=== PATIENT | male | born 1950 | race Caucasian/White ===

== ENCOUNTER → 2019-12-18 13:37 | Outpatient (BNVA) | payer OTHER, MEDICARE, SELFPAY | PROVIDERS: PCP Internal Medicine; Visit Provider Nurse Practitioner Family | DX: Z11.59 Encounter for screening for other viral diseases (principal) | CPT/HCPCS: 87635 ==

== ENCOUNTER → 2020-05-26 09:18 | Outpatient (BNVA) | payer OTHER, SELFPAY | PROVIDERS: PCP Internal Medicine; Visit Provider Internal Medicine Cardiovascular Disease | DX: I10 Essential (primary) hypertension (principal); I49.9 Cardiac arrhythmia, unspecified; E78.1 Pure hyperglyceridemia; I49.3 Ventricular premature depolarization; R91.1 Solitary pulmonary nodule | CPT/HCPCS: 80053; 80061; 84443; 85025 ==

== ENCOUNTER → 2021-01-07 09:21 | Outpatient (BNVA) | payer OTHER, SELFPAY | PROVIDERS: PCP Internal Medicine; Visit Provider Nurse Practitioner Family | DX: E78.1 Pure hyperglyceridemia (principal); I10 Essential (primary) hypertension | CPT/HCPCS: 80053; 80061 ==

== ENCOUNTER 2024-01-11 11:51 | Emergency (ER) | payer OTHER, SELFPAY ==
[2024-01-11] VITALS (7 sets, daily range): BP systolic 157–186; BP diastolic 77–109; PULSE 53–69; RESP 18; TEMP 36.7; O2SAT 95–98; BMI 23.1
--- NOTE | 2024-01-11 11:55 | ECG_ITS ---
[employer] Test Date: 2024-01-11 Pat Name: Brent Damon Department: Room: Gender: Male Investigation Lieutenant: : 1950 Requested By: Ml Hernandez Order Number: [id number] Philipp MD: Paul Hamlin M.D. Measurements Intervals [place] Rate: 74 P: 54 TN: 178 QRS: 39 QRSD: 99 T: 71 QT: 397 QTc: 442 Interpretive Statements SINUS RHYTHM WITH FREQUENT SUPRAVENTRICULAR PREMATURE COMPLEXES POSSIBLE LEFT ATRIAL ENLARGEMENT [-0.1mV P-WAVE IN V1/V2] ABNORMAL RHYTHM ECG No previous ECG available for comparison Electronically Signed On 01-11-2024 19:11:28 MANAGER TRADE by Paul Hamlin M.D. [email or web address]
--- NOTE | 2024-01-11 12:37 | ED_ITS ---
HPI - Recheck/Abnormal Lab/Rx 2 General: Chief Complaint: Recheck/Abnormal Lab/Rx Stated Complaint: HTN Time Seen by Provider: 01/11/24 12:20 History of Present Illness: Patient presents to the ER with complaints of rapid heartbeat and high blood pressure last 3 days. Patient states he has been not using his lisinopril 20 mg 1 pill daily for months but in the last 3 days he started back 20 mg of first a 30 mg a second a 50 mg today with no relief in blood pressure. He states when he is on this consistently his blood pressure runs in the 130s to 140s. Patient denies any chest pain shortness of breath. On arrival patient's blood pressure was 175/101 with a heart rate of 62 Related Data Home Medications Medication Instructions Recorded Confirmed atorvastatin 10 mg tablet 10 mg PO DAILY 01/11/24 01/11/24 Allergies Allergy/AdvReac Type Severity Reaction Status Date / Time No Known Allergies Allergy Verified 01/11/24 12:10 Review of Systems 2 General: Reports: 10 or more systems reviewed and unremarkable except in HPI and below PFSH ED 2 PFSH: Medical History Hypertriglyceridemia PVC (premature ventricular contraction) HTN (hypertension) Pulmonary nodule Surgical History Hx of splenectomy 1980 Family History Other Cancer Myasthenia gravis Social History Quit status (tobacco/nicotine): has quit using Year quit tobacco: 1983 Former quit date comment: smoked 1.5-2 PPD x 20-30 yrs Second hand smoke exposure: No Alcohol intake: current Alcohol intake frequency: other Substance/Drug Use: never Lives independently: Yes Marital status: Single Current occupational status: retired Current gender identity: Male Special lalito needs: No Physical Exam 2 Const: COMMON NORMALS: no acute distress, average body habitus, patient oriented x3, no limitations, healthy appearing, alert and well nourished HENMT: COMMON NORMALS: normocephalic, atraumatic, hearing grossly normal bilaterally, external ears normal, Normal external nose present and moist oral mucous membranes HEAD & SCALP: normocephalic and atraumatic NOSE: Normal external nose present EXTERNAL EAR: Yes external ears normal Neck/C-Spine: COMMON NORMALS: full ROM, no lymphadenopathy, supple, no meningeal signs and no JVD Chest: COMMONS NORMALS: normal inspection of the chest and normal palpation of entire chest wall Resp: COMMON NORMALS: normal respiratory effort, No retractions, No use of accessory muscles and clear to auscultation bilaterally AUSCULTATION: clear to auscultation bilaterally Cardio: COMMON NORMALS: no JVD, regular rate, regular rhythm, S1 normal heart sound present, S2 normal heart sound present, No gallops present (Cardio), No clicks present (Cardio), No murmurs present (Cardio) and No rub (Cardio) R ATE: regular rate RHYTHM: regular rhythm HEART SOUNDS: S1 normal heart sound present and S2 normal heart sound present GI: COMMON NORMALS: Normal to inspection, nondistended, normoactive bowel sounds present, Soft to palpation, non-tender, No hepatosplenomegaly present and no masses PALPATION: Yes Soft to palpation and Yes No hepatosplenomegaly present Neuro: COMMON NORMALS: patient oriented x3 SENSORIUM/ORIENTATION: Yes alert MENINGEAL SIGNS: Yes no meningeal signs Course 2 Vital Signs: Vital signs: Vital Signs Temperature 98.0 F 01/11/24 12:03 Pulse Rate 53 L 01/11/24 13:30 Respiratory Rate 18 01/11/24 13:00 Blood Pressure 157/85 01/11/24 13:30 Pulse Oximetry 95 01/11/24 13:30 Oxygen Delivery Me thod Room Air 01/11/24 13:30 MDM - Recheck/Abnormal Lab/Rx Medical Decision Making Patient was given clonidine 0.2 mg p.o. already for lab work to come back. Patient was getting upset due to the wait and is requesting to leave. Patient be discharged and should follow-up with his PCP. Medical Records I reviewed the patient's medical records. Lab Data I reviewed the patient's lab results. 01/11/24 11:45 01/11/24 11:45 Laboratory Results WBC 8.60 10^3/uL (3.29-11.43) 01/11/24 11:45 RBC 4.40 10^6/uL (3.85-5.65) 01/11/24 11:45 Hgb 13.70 g/dL (11.27-16.99) 01/11/24 11:45 Hct 41.6 % (37-53) 01/11/24 11:45 MCV 94.5 fl (82-101) 01/11/24 11:45 MCH 31.1 pg (27-33) 01/11/24 11:45 MCHC 32.9 g/dL (30-55) 01/11/24 11:45 RDW 13.8 % (12.1-15.1) 01/11/24 11:45 Plt Count 205 10^3/cmm (157-399) 01/11/24 11:45 MPV 11.2 fL (7.4-10.4) H 01/11/24 11:45 Neut % (Auto) 57.3 % 01/11/24 11:45 Lymph % (Auto) 25.3 % 01/11/24 11:45 [place] % (Auto) 13.4 % 01/11/24 11:45 Eos % (Auto) 2.6 % 01/11/24 11:45 Baso % (Auto) 0.9 % 01/11/24 11:45 Neut # (Auto) 4.93 10^3/uL (1.8-7.7) 01/11/24 11:45 Lymph # (Auto) 2.2 10^3/uL (0.8-4.8) 01/11/24 11:45 [place] # (Auto) 1.2 10^3/uL (0.2-0.9) H 01/11/24 11:45 Eos # (Auto) 0.2 10^3/uL (0.0-0.8) 01/11/24 11:45 Baso # (Auto) 0.1 10^3/uL (0.0-0.1) 01/11/24 11:45 Nucleated RBC % (auto) 0 % 01/11/24 11:45 Nucleated RBCs # 0.0 /100WBC 01/11/24 11:45 Sodium 141 mmol/L (136-145) 01/11/24 11:45 Potassium 4.3 mmol/L (3.5-5.1) 01/11/24 11:45 Chloride 104 mmol/L (98-107) 01/11/24 11:45 Carbon Dioxide 27 mmol/L (22-29) 01/11/24 11:45 Anion Gap 14.3 (5-19) 01/11/24 11:45 BUN 13 mg/dL (8-23) 01/11/24 11:45 Creatinine 0.8 mg/dL (0.7-1.2) 01/11/24 11:45 GFR Calculation Not Reportable 01/11/24 11:45 Glucose 102 mg/dL (65-115) 01/11/24 11:45 Calculated Osmolality 292 mOsm/kg (285-295) 01/11/24 11:45 Calcium 8.9 mg/dL (8.5-10.5) 01/11/24 11:45 Total Bilirubin 0.5 mg/dL (0.15-1.2) 01/11/24 11:45 AST 24 U/L (0-40) 01/11/24 11:45 ALT 14 U/L (0-41) 01/11/24 11:45 Alkaline Phosphatase 111 U/L (40-130) 01/11/24 11:45 Total Protein 7.8 g/dL (6.6-8.7) 01/11/24 11:45 Albumin 4.2 g/dL (3.5-5.2) 01/11/24 11:45 Globulin 3.6 g/dL (1.3-4.6) 01/11/24 11:45 All radiology interpretation(s) finalized by discharge Discharge Plan Discharge Patient Disposition: Home Clinical Impression: Essential hypertension, Noncompliance with medications Condition: Stable Prescriptions: No Action atorvastatin 10 mg Tablet 10 mg PO DAILY Discharge Orders: Discharge ED (Routine); Ordered 01/11/24 Ordered By: Tahir Laboy Referrals: David Castillo [Primary Care Provider] - 1 week Patient Instructions: Hypertension (ED) Activity Restrictions/Additional Instructions: Please take your blood pressure several times a day. Please keep a blood pressure log. Please take it to you with your family practice physician within the next 7 days for further evaluation and treatment of your blood pressure. Coding Level of Care Code ED Search Engine Marketing Manager for Debora Zayas
[2024-01-11] MEDS: cloNIDine 0.1 mg Tablet 0.2 MG PO (12:40)
[2024-01-11 13:03] LABS: Basophils # 0.1 10^3/uL (0.0-0.1); Basophils % 0.9 %; Eosinophils # 0.2 10^3/uL (0.0-0.8); Eosinophils % 2.6 %; Hematocrit 41.6 % (37-53); Lymphocytes # 2.2 10^3/uL (0.8-4.8); Lymphocytes % 25.3 %; Mean Corpuscular HGB Conc 32.9 g/dL (30-55); Mean Corpuscular Hemoglobin 31.1 pg (27-33); Mean Corpuscular Volume 94.5 fl (82-101); Mean Platelet Volume 11.2 fL (7.4-10.4); Monocytes # 1.2 10^3/uL (0.2-0.9); Monocytes % 13.4 %; Neutrophils # 4.93 10^3/uL (1.8-7.7); Neutrophils % 57.3 %; Nucleated Red Blood Cells % 0 %; Platelet Count 205 10^3/cmm (157-399); Red Cell Distribution Width 13.8 % (12.1-15.1)
[2024-01-11 13:16] LABS: Alanine Aminotransferase 14 U/L (0-41); Albumin Level 4.2 g/dL (3.5-5.2); Alkaline Phosphatase 111 U/L (40-130); Anion Gap 14.3 (5-19); Aspartate Amino Transferase 24 U/L (0-40); Blood Urea Nitrogen 13 mg/dL (8-23); Calcium 8.9 mg/dL (8.5-10.5); Carbon Dioxide 27 mmol/L (22-29); Chloride 104 mmol/L (98-107); Creatinine Clr Calc Pharmacy 92.6968; Globulin 3.6 g/dL (1.3-4.6); Glucose 102 mg/dL (65-115); Osmolality Calculated 292 mOsm/kg (285-295); Potassium 4.3 mmol/L (3.5-5.1); Sodium 141 mmol/L (136-145); Total Bilirubin 0.5 mg/dL (0.15-1.2); Total Protein 7.8 g/dL (6.6-8.7)
== END 2024-01-11 14:16 | disposition home or self-care (01) ==
PROVIDERS: Emergency Medicine; Emergency Provider Emergency Medicine; PCP Internal Medicine
DX: I10 Essential (primary) hypertension (principal); Z91.148 Patient's other noncompliance with medication regimen for other reason; Z87.891 Personal history of nicotine dependence
CPT/HCPCS: 80053; 85025; 93005; 99284